=== PATIENT | female | born 1945 | race Caucasian/White ===

== ENCOUNTER → 2017-04-17 | Outpatient (CLI) | payer MEDICARE, OTHER ==
[2015-03-20 13:46] VITALS: BP 143/63
[~2017-04-17] MED LIST: ALLEGRA ALLERGY60 MG PO; ATORVASTATIN CA20 MG PO; ESCITALOPRAM10 MG PO; FOSAMAX 70MG TA70 MG PO; IRON160 MG PO; LISINOPRIL10 MG PO; MULTIPLE VITAM1 EACH PO; OXYBUTYNIN CHLO10 MG PO; VIBRAMYCIN100 MG PO; VITAMIN C500 MG PO
== END ==
LOC: RAD 14:08
DX: Z12.31 Encounter for screening mammogram for malignant neoplasm of breast (principal)
CPT/HCPCS: G0202

== ENCOUNTER → 2017-07-30 | Outpatient (CLI) | payer MEDICARE, OTHER ==
[2015-03-20 13:46] VITALS: BP 143/63
== END ==
LOC: RAD 12:49
DX: M85.88 Other specified disorders of bone density and structure, other site (principal)

== ENCOUNTER → 2019-01-14 | Outpatient (CLI) | payer MEDICARE, OTHER ==
[2015-03-20 13:46] VITALS: BP 143/63
== END ==
LOC: MAMMO 11:14
DX: Z12.31 Encounter for screening mammogram for malignant neoplasm of breast (principal)

== ENCOUNTER → 2020-04-05 | Outpatient (CLI) | payer MEDICARE ==
[2015-03-20 13:46] VITALS: BP 143/63
== END ==
LOC: MAMMO 12:57
DX: Z12.31 Encounter for screening mammogram for malignant neoplasm of breast (principal)

== ENCOUNTER → 2020-04-05 | Outpatient (CLI) | payer MEDICARE ==
[2015-03-20 13:46] VITALS: BP 143/63
== END ==
LOC: MAMMO 12:56
DX: Z12.31 Encounter for screening mammogram for malignant neoplasm of breast (principal); M81.0 Age-related osteoporosis without current pathological fracture

== ENCOUNTER 2020-10-11 08:51 | Outpatient (RCR) | payer MEDICARE | END 2020-11-30 17:00 | disposition still patient (30) | LOC: PT 08:51 | DX: R26.81 Unsteadiness on feet (principal); R26.89 Other abnormalities of gait and mobility ==

== ENCOUNTER 2022-02-21 09:00 | Outpatient (RCR) | payer MEDICARE | END 2022-03-21 | disposition still patient (30) | LOC: PT | DX: M17.0 Bilateral primary osteoarthritis of knee (principal) ==

== ENCOUNTER → 2022-05-08 | Outpatient (CLI) | payer MEDICARE | LOC: MAMMO 08:18 | DX: Z12.31 Encounter for screening mammogram for malignant neoplasm of breast (principal) ==

== ENCOUNTER → 2024-06-15 | Outpatient (CLI) | payer MEDICARE, OTHER | LOC: MAMMO 09:29 | DX: Z12.31 Encounter for screening mammogram for malignant neoplasm of breast (principal) ==

== ENCOUNTER → 2024-06-15 | Outpatient (CLI) | payer MEDICARE, OTHER | LOC: RAD 09:41 → MAMMO 10:00 | DX: M85.80 Other specified disorders of bone density and structure, unspecified site (principal) ==